=== PATIENT | male | born 1995 | race Caucasian/White ===

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

== ENCOUNTER 2017-09-04 11:38 | Emergency (ER) | payer SELFPAY ==
[~2017-09-04] VITALS: Ht 182.9 cm; Wt 75.0 kg
[2017-09-04] MEDS ORDERED: DOCUSATE SODIUM SUGAR FREE 100MG/10ML UDC NG ONE (13:45)
[2017-09-04] MEDS ORDERED: DOCUSATE SODIUM SUGAR FREE 100MG/10ML UDC NG SCH (14:45)
[2017-09-04 15:00] VITALS: BP 136/75
== END 2017-09-04 15:27 | disposition home or self-care (01) ==
LOC: ER 12:36
DX: T16.1XXA Foreign body in right ear, initial encounter (principal); X58.XXXA Exposure to other specified factors, initial encounter; Y93.9 Activity, unspecified; Y92.89 Other specified places as the place of occurrence of the external cause
CPT/HCPCS: 99283; Z7610; 12011